=== PATIENT | female | born 1990 | race Two or more races ===

== ENCOUNTER 2017-09-07 14:07 | Emergency (ER) | payer SELFPAY ==
[2017-09-07 14:58] LABS: Bilirubin Negative (Negative); Blood, Urine Negative (Negative); Clarity CLEAR (Clear); Glucose, Urine (Dipstick) Negative (Negative); Leukocyte Negative (Negative); Nitrite Negative (Negative); Protein, Urine (Dipstick) Negative (Neg-Trace); Specific Gravity, Urine 1.016 (1.002-1.036); Urobilinogen 0.2 mg/dL (0.2-1.0); pH, Urine 7.5 (5.0-9.0)
[2017-09-07 15:22] LABS: Pregnancy Test - Urine (BHCG) Negative (Negative); Pregu Control Background? CLEAR/WHITE (CLR/WHITE); Pregu Control Bar Appear? YES (CONTROL BAR); Specific Gravity 1.016 (1.002-1.036)
[2017-09-10 12:26] LABS: Chlamydia by PCR Not Detected (NotDetected); GC by PCR Not Detected (NotDetected)
== END 2017-09-07 16:04 | disposition home or self-care (01) ==
LOC: ERS 14:07
DX: N76.0 Acute vaginitis (principal); B36.0 Pityriasis versicolor; B37.3 Candidiasis of vulva and vagina; F17.210 Nicotine dependence, cigarettes, uncomplicated
CPT/HCPCS: 81003; 81025; 87480; 87491; 87510; 87591; 87660; 99284

== ENCOUNTER 2017-11-12 18:54 | Emergency (ER) | payer SELFPAY ==
[2017-11-12 19:26] LABS: Bilirubin Negative (Negative); Blood, Urine Negative (Negative); Clarity CLOUDY (Clear); Glucose, Urine (Dipstick) Negative (Negative); Leukocyte Moderate (Negative); Nitrite Negative (Negative); Protein, Urine (Dipstick) Negative (Neg-Trace); Specific Gravity, Urine 1.016 (1.002-1.036); Urobilinogen 0.2 mg/dL (0.2-1.0)
[2017-11-12 19:27] LABS: Bacteria/HPF 1+ HPF (None Seen); Hyaline Casts/LPF 0-3 HYALINE CAST LPF (0-3 Hyaline); Pathc Cast-AUWi Flag 0.14 (0-2.49); Squamous Epithelial 0-3 HPF (0-3)
[2017-11-12 19:40] LABS: RBC/HPF 0-3 HPF (0-3)
[2017-11-13 20:00] LABS: Chlamydia by PCR Not Detected (NotDetected); GC by PCR Not Detected (NotDetected)
== END 2017-11-12 21:15 | disposition home or self-care (01) ==
LOC: ERS 18:54
DX: N76.0 Acute vaginitis (principal); N39.0 Urinary tract infection, site not specified; F17.210 Nicotine dependence, cigarettes, uncomplicated
CPT/HCPCS: 81003; 81015; 87077; 87086; 87186; 87480; 87491; 87510; 87591; 87660; 99283

== ENCOUNTER 2018-02-01 15:16 | Emergency (ER) | payer SELFPAY ==
[2018-02-01 15:39] LABS: Bilirubin Negative (Negative); Blood, Urine Negative (Negative); Clarity CLEAR (Clear); Glucose, Urine (Dipstick) Negative (Negative); Leukocyte Negative (Negative); Nitrite Negative (Negative); Protein, Urine (Dipstick) Negative (Neg-Trace); Specific Gravity, Urine 1.028 (1.002-1.036)
[2018-02-01 15:40] LABS: Pregnancy Test - Urine (BHCG) Negative (Negative); Pregu Control Background? CLEAR/WHITE (CLR/WHITE); Pregu Control Bar Appear? YES (CONTROL BAR); Specific Gravity 1.028 (1.002-1.036)
[2018-02-02 22:28] LABS: Chlamydia by PCR Not Detected (NotDetected); GC by PCR Not Detected (NotDetected)
== END 2018-02-01 17:25 | disposition home or self-care (01) ==
LOC: ERS 15:16
DX: N76.0 Acute vaginitis (principal); F17.210 Nicotine dependence, cigarettes, uncomplicated
CPT/HCPCS: 81003; 81025; 87480; 87491; 87510; 87591; 87660; 99283

== ENCOUNTER 2018-04-24 14:33 | Emergency (ER) | payer SELFPAY ==
[2018-04-24 15:01] LABS: Bilirubin Small (Negative); Blood, Urine Trace (Negative); Clarity CLOUDY (Clear); Glucose, Urine (Dipstick) Negative (Negative); Leukocyte Large (Negative); Nitrite Negative (Negative); Protein, Urine (Dipstick) Negative (Neg-Trace); Specific Gravity, Urine 1.026 (1.002-1.036)
[2018-04-24 15:02] LABS: Pregnancy Test - Urine (BHCG) Negative (Negative); Pregu Control Background? CLEAR/WHITE (CLR/WHITE); Pregu Control Bar Appear? YES (CONTROL BAR); Specific Gravity 1.026 (1.002-1.036)
[2018-04-24 15:07] LABS: Bacteria/HPF 1+ HPF (None Seen); Hyaline Casts/LPF 4-6 HYALINE CAST LPF (0-3 Hyaline); Pathc Cast-AUWi Flag 1.16 (0-2.49); Squamous Epithelial 0-3 HPF (0-3)
[2018-04-27 01:06] LABS: Chlamydia by PCR Not Detected (NotDetected); GC by PCR Not Detected (NotDetected)
== END 2018-04-24 16:45 | disposition home or self-care (01) ==
LOC: ERS 14:33
DX: N39.0 Urinary tract infection, site not specified (principal); F17.210 Nicotine dependence, cigarettes, uncomplicated
CPT/HCPCS: 81003; 81015; 81025; 87077; 87086; 87186; 87480; 87491; 87510; 87591; 87660; 99283

== ENCOUNTER 2018-06-28 08:30 | Emergency (ER) | payer SELFPAY | END 2018-06-28 09:18 | disposition home or self-care (01) | LOC: ERS 08:30 | DX: K02.9 Dental caries, unspecified (principal); F17.210 Nicotine dependence, cigarettes, uncomplicated | CPT/HCPCS: 99282 ==

== ENCOUNTER 2018-07-26 08:45 | Emergency (ER) | payer SELFPAY ==
[2018-07-26 09:11] LABS: Bilirubin Negative (Negative); Blood, Urine Negative (Negative); Clarity CLEAR (Clear); Glucose, Urine (Dipstick) Negative (Negative); Leukocyte Negative (Negative); Nitrite Negative (Negative); Protein, Urine (Dipstick) Negative (Neg-Trace); Specific Gravity, Urine 1.022 (1.002-1.036)
[2018-07-26 09:24] LABS: Pregnancy Test - Urine (BHCG) Negative (Negative); Pregu Control Background? CLEAR/WHITE (CLR/WHITE); Pregu Control Bar Appear? YES (CONTROL BAR); Specific Gravity 1.022 (1.002-1.036)
[2018-07-28 09:27] LABS: Chlamydia by PCR Not Detected (NotDetected); GC by PCR Not Detected (NotDetected)
== END 2018-07-26 10:12 | disposition home or self-care (01) ==
LOC: ERS 08:45
DX: N76.0 Acute vaginitis (principal); F17.210 Nicotine dependence, cigarettes, uncomplicated
CPT/HCPCS: 81003; 81025; 87086; 87480; 87491; 87510; 87591; 87660; 99283

== ENCOUNTER 2018-10-17 17:43 | Emergency (ER) | payer SELFPAY ==
[2018-10-17 18:45] LABS: Bilirubin Negative (Negative); Blood, Urine Negative (Negative); Clarity Clear (Clear); Glucose, Urine (Dipstick) Normal (Negative); Leukocyte Negative Leu/uL (Negative); Nitrite Negative (Negative); Protein, Urine (Dipstick) Negative (Neg-Trace); Urobilinogen Normal mg/dL (Less than 2)
[2018-10-17 19:00] LABS: Pregnancy Test - Urine (BHCG) Negative (Negative); Pregu Control Background? CLEAR/WHITE (CLR/WHITE); Pregu Control Bar Appear? YES (CONTROL BAR); Specific Gravity 1.012 (1.002-1.036)
[2018-10-17] MEDS ORDERED: cefTRIAXone\\ROCEPHIN 250 MG VIAL ONE (20:17)
[2018-10-17] MEDS ORDERED: Azithromycin 250 MG TAB ONE (20:18)
[2018-10-17] MEDS ORDERED: Lidocaine 1% PF 5 ML VIAL ONE (20:18)
== END 2018-10-17 21:20 | disposition home or self-care (01) ==
LOC: ERS 17:43
DX: N76.0 Acute vaginitis (principal); N72 Inflammatory disease of cervix uteri; B96.89 Other specified bacterial agents as the cause of diseases classified elsewhere; F17.210 Nicotine dependence, cigarettes, uncomplicated
CPT/HCPCS: 81003; 81025; 87480; 87491; 87510; 87591; 87660; 96372; 99283; J0696; J2001

== ENCOUNTER 2019-01-03 13:36 | Emergency (ER) | payer SELFPAY ==
[2019-01-03] MEDS ORDERED: Adacel (T-DAP) 0.5 ML SYRINGE ONE (16:08)
[2019-01-03] MEDS ORDERED: Ketorolac Tromethamine 30 MG/ML VIAL ONE (16:08)
--- NOTE | 2019-01-03 16:22 | RAD ---
XR Forearm Rt 2 View STANDARD: 01/03/2019 3:42 PM CLINICAL INDICATION: Pain, injury COMPARISON: None. FINDINGS: Fracture:No fracture. Arthropathy:None of significance. Incidental findings:None of significance. IMPRESSION: 1. No acute osseous abnormality.
--- NOTE | 2019-01-03 16:31 | RAD ---
RIGHT KNEE: 01/03/19 Four views. HISTORY: Injury. No fracture. No osseous abnormality. No joint effusion. IMPRESSION: Negative right knee. POS: OFF
[2019-01-03] MEDS ORDERED: Triple Antibiotic Oint 1 GM Packet ONE ×2 (17:08→17:09)
== END 2019-01-03 17:40 | disposition home or self-care (01) ==
LOC: ERS 13:36
DX: S50.311A Abrasion of right elbow, initial encounter (principal); S80.211A Abrasion, right knee, initial encounter; M79.631 Pain in right forearm; M25.561 Pain in right knee; F17.210 Nicotine dependence, cigarettes, uncomplicated; Z79.899 Other long term (current) drug therapy; W17.89XA Other fall from one level to another, initial encounter
CPT/HCPCS: 90471; 90715; 96372; J1885

== ENCOUNTER 2019-03-24 17:00 | Emergency (ER) | payer SELFPAY ==
[2019-03-24 17:20] LABS: Bilirubin Negative (Negative); Blood, Urine Negative (Negative); Clarity Clear (Clear); Glucose, Urine (Dipstick) Normal (Negative); Leukocyte Negative Leu/uL (Negative); Nitrite Negative (Negative); Pregnancy Test - Urine (BHCG) POSITIVE (Negative); Pregu Control Background? CLEAR/WHITE (CLR/WHITE); Pregu Control Bar Appear? YES (CONTROL BAR); Protein, Urine (Dipstick) Negative (Neg-Trace); Specific Gravity 1.007 (1.002-1.036); Urobilinogen Normal mg/dL (Less than 2)
[2019-03-28 00:50] LABS: Chlamydia by PCR Not Detected (NotDetected); GC by PCR Not Detected (NotDetected)
== END 2019-03-24 19:37 | disposition home or self-care (01) ==
LOC: ERS 17:00
DX: O23.591 Infection of other part of genital tract in pregnancy, first trimester (principal); N76.0 Acute vaginitis; B96.89 Other specified bacterial agents as the cause of diseases classified elsewhere; O99.331 Smoking (tobacco) complicating pregnancy, first trimester; F17.210 Nicotine dependence, cigarettes, uncomplicated; Z3A.00 Weeks of gestation of pregnancy not specified
CPT/HCPCS: 81003; 81025; 87480; 87491; 87510; 87591; 87660; 99406

== ENCOUNTER 2019-04-18 18:15 | Emergency (ER) | payer SELFPAY ==
[2019-04-18 19:47] LABS: BHCG - Serum POSITIVE (NEGATIVE); Pregs Control Background? CLEAR/WHITE (CLR/WHITE); Pregs Control Bar Appear? YES (CONTROL BAR)
--- NOTE | 2019-04-18 20:06 | ULT ---
Obstetric sonogram HISTORY: Early . Bleeding. FINDINGS: Gestational sac within the endometrial cavity contains a pole. Measurements correlate with 9 weeks 0 days gestational age. No heart motion visualized. Small amount of fluid protrudes into the cervical canal. Physiologic amount of free fluid within the pelvis. Neither ovary well visualized with transabdominal or transvaginal imaging. IMPRESSION: Intrauterine gestational sac. pole size 9 weeks 0 days. No heart motion visible. Sonographic findings of intrauterine demise. Please consider bishop se continued clinical and sonographic follow-up.
[2019-04-18 20:25] LABS: #Basophils 0.1 thou/uL (0.0-0.2); #Eosinphils 0.1 thou/uL (0.0-0.7); #Lymphocytes 2.2 thou/uL (1.20-3.40); #Monocytes 0.5 thou/uL (0.11-0.59); #Neutrophils 2.9 thou/uL (1.40-6.50); %Basophils 1.7 % (0.0-1.0); %Eosinophils 2.5 % (0.0-10.0); %Lymphocytes 37.8 % (21.0-51.0); %Monocytes 8.1 % (0.0-10.0); %Neutrophils 49.9 % (42.0-75.0); Hemoglobin 13.2 g/dL (12.0-16.0); Mean Corpuscular HGB CONC 33.1 g/dL (32.0-36.0); Mean Corpuscular Hemoglobin 28.7 pg (27.0-31.0); Mean Corpuscular Volume 86.7 fL (78.0-98.0); Mean Platelet Volume 8.2 fL (7.4-10.4); Platelet Count 257 thou/uL (130-400); RBC Distribution Width 12.3 % (11.5-14.5); Red Blood Cell (RBC) Count 4.59 mill/uL (4.20-5.40); White Blood Cell (WBC) Count 5.8 thou/uL (4.8-10.8)
[2019-04-18 20:53] LABS: ALT (SGPT) 9 U/L (8-55); AST (SGOT) 15 U/L (5-34); Albumin 4.4 g/dL (3.5-5.0); Alkaline Phosphatase 52 U/L (40-110); Anion Gap 12 mmol/L (10-20); BUN (Urea Nitrogen) 6 mg/dL (7.0-18.7); Bilirubin, Total 0.6 mg/dL (0.2-1.2); Calc. Creatinine Clearance 0 mL/min (70-130); Calcium 9.6 mg/dL (7.8-10.44); Carbon Dioxide 21 mmol/L (22-29); Chloride 106 mmol/L (98-107); Estimated GFR-MDRD Greater than 90; Globulin 2.9 g/dL (2.4-3.5); Glucose 76 mg/dL (70-105); Potassium 3.9 mmol/L (3.5-5.1); Protein, Total 7.3 g/dL (6.0-8.3); Sodium 135 mmol/L (136-145)
== END 2019-04-18 21:09 | disposition home or self-care (01) ==
LOC: ERS 18:15
DX: O03.9 Complete or unspecified spontaneous abortion without complication (principal); F17.210 Nicotine dependence, cigarettes, uncomplicated
CPT/HCPCS: 36415; 76856; 80053; 84702; 84703; 85025; 86850; 86900; 86901

== ENCOUNTER 2019-04-21 20:33 | Observation (INO) | payer MEDICAID, SELFPAY ==
[2019-04-21] MEDS ORDERED: Morphine 4 MG/ML VIAL ONE ×2 (21:14→21:53)
[2019-04-21] MEDS ORDERED: Ondansetron PF 4 MG/2 ML Vial ONE (21:14)
[2019-04-21 21:20] LABS: #Basophils 0.1 thou/uL (0.0-0.2); #Eosinphils 0.2 thou/uL (0.0-0.7); #Lymphocytes 4.4 thou/uL (1.20-3.40); #Monocytes 0.9 thou/uL (0.11-0.59); #Neutrophils 5.7 thou/uL (1.40-6.50); %Basophils 0.6 % (0.0-1.0); %Eosinophils 1.7 % (0.0-10.0); %Lymphocytes 39.4 % (21.0-51.0); %Monocytes 7.7 % (0.0-10.0); %Neutrophils 50.5 % (42.0-75.0); Hemoglobin 11.9 g/dL (12.0-16.0); Mean Corpuscular HGB CONC 33.3 g/dL (32.0-36.0); Mean Corpuscular Hemoglobin 28.7 pg (27.0-31.0); Mean Corpuscular Volume 86.1 fL (78.0-98.0); Mean Platelet Volume 7.7 fL (7.4-10.4); Platelet Count 247 thou/uL (130-400); RBC Distribution Width 12.3 % (11.5-14.5); Red Blood Cell (RBC) Count 4.17 mill/uL (4.20-5.40); White Blood Cell (WBC) Count 11.2 thou/uL (4.8-10.8)
[2019-04-21] MEDS ORDERED: Ketorolac Tromethamine 30 MG/ML VIAL ONE (21:43)
[2019-04-21 21:44] LABS: ALT (SGPT) 8 U/L (8-55); AST (SGOT) 11 U/L (5-34); Albumin 4.4 g/dL (3.5-5.0); Alkaline Phosphatase 51 U/L (40-110); Anion Gap 13 mmol/L (10-20); BUN (Urea Nitrogen) 10 mg/dL (7.0-18.7); Bilirubin, Total 0.3 mg/dL (0.2-1.2); Calc. Creatinine Clearance 0 mL/min (70-130); Calcium 9.4 mg/dL (7.8-10.44); Carbon Dioxide 25 mmol/L (22-29); Chloride 106 mmol/L (98-107); Estimated GFR-MDRD Greater than 90; Globulin 2.8 g/dL (2.4-3.5); Glucose 116 mg/dL (70-105); Potassium 3.4 mmol/L (3.5-5.1); Protein, Total 7.2 g/dL (6.0-8.3); Sodium 141 mmol/L (136-145)
[2019-04-21] MEDS ORDERED: Fentanyl 100 MCG/2 ML VIAL ONE (22:42)
--- NOTE | 2019-04-21 23:27 | ULT ---
Ultrasound pelvis: DATE: 04/21/2019 Time: 1:55 PM HISTORY: 29-year-old female with first trimester intrauterine demise documented on 04/18/2019. Increasing pelvic pain and vaginal bleeding. Evaluate for retained products of conception. COMPARISON: 04/18/2019 FINDINGS: The abnormally elongated, large volume intrauterine gestational sac remains. It is now hourglass shap ed, with lower portion reaching lower uterine segment. That is the only interval change. pole remains inside. No heart activity. No free fluid in the cul-de-sac. 1.5 cm left ovarian corpus luteal cyst. Otherwise bilateral ovaries are normal in size. IMPRESSION: Intrauterine demise, with retained, grossly intact first trimester fetus
[2019-04-22 00:08] LABS: #Basophils 0.1 thou/uL (0.0-0.2); #Lymphocytes 1.8 thou/uL (1.20-3.40); #Monocytes 0.6 thou/uL (0.11-0.59); #Neutrophils 9.9 thou/uL (1.40-6.50); %Basophils 0.9 % (0.0-1.0); %Eosinophils 0.4 % (0.0-10.0); %Lymphocytes 14.3 % (21.0-51.0); %Monocytes 4.6 % (0.0-10.0); %Neutrophils 79.8 % (42.0-75.0); Hemoglobin 10.7 g/dL (12.0-16.0); Mean Corpuscular HGB CONC 33.1 g/dL (32.0-36.0); Mean Corpuscular Hemoglobin 28.5 pg (27.0-31.0); Mean Platelet Volume 7.8 fL (7.4-10.4); Platelet Count 218 thou/uL (130-400); RBC Distribution Width 12.1 % (11.5-14.5); Red Blood Cell (RBC) Count 3.75 mill/uL (4.20-5.40); White Blood Cell (WBC) Count 12.4 thou/uL (4.8-10.8)
[2019-04-22] MEDS ORDERED: Ondansetron PF 4 MG/2 ML Vial IVP PRN (01:12)
[2019-04-22] MEDS ORDERED: Lactated Ringer's 1,000 ML IV SCH (01:15)
[2019-04-22] MEDS ORDERED: cefTRIAXone\\ROCEPHIN 1 GM in Sodium Chloride 0.9% 100 ML IVPB SCH (01:15)
[2019-04-22] MEDS ORDERED: Fentanyl 100 MCG/2 ML VIAL ONE (01:31)
--- NOTE | 2019-04-22 01:47 | HP ---
TIME OF EVALUATION: 0100 hours, time now is 0109 hours. LOCATION: ER bed 23. REASON FOR EVALUATION: Eight week spontaneous AB with bleeding. HISTORY OF PRESENT ILLNESS: In brief, this patient is a 29-year-old female, G4, P3, diagnosed with an 8 week missed AB here in the ER previously who presents now with vaginal bleeding and some clots. Ultrasound done in the ER again shows an 8 week missed AB, has retained products. Her vaginal bleeding is moderate. She has not seen a physician for this . She denies syncope, but she does have some lightheadedness. REVIEW OF SYSTEMS: Complete review of systems was completed and is otherwise negative unless specified in the HPI. PAST MEDICAL HISTORY: Negative. ALLERGIES: NONE. PAST SURGICAL HISTORY: Three previous C-sections. PHYSICAL EXAMINATION: VITAL SIGNS: Her pulse was in the 90s, blood pressure was 90/60s. She is afebrile. GENERAL: She is in no acute distress, but appears to have some uterine cramping. ABDOMEN: Soft, nontender. GENITOURINARY: Vaginal exam shows vaginal bleeding, but no active clots. LABORATORY DATA: Patient's blood type is Rh positive. Hematocrit is 32, creatinine is 0.67. ASSESSMENT: This is a 29-year-old female with a first trimester missed with active bleeding, the plan is for dilation and curettage. PLAN: 1. I have called the OR (Stevie) and he is aware. 2. We are awaiting OR availability. 3. As the patient was complaining of acute onset of bleeding, with an ultrasound showing 8 week fetus still in situ, I opted for D and C rather than Cytotec. 4. I have asked Dr. Keira Carter, who is the resident technologies division chair, to bring the ultrasound down to the OR when we are ready for ultrasound guidance. 5. Rh positive, so no RhoGAM is necessary. 6. I did perform informed consent with the patient. She is aware of risks and benefits of the D and C. Job ID: [id number]
[2019-04-22] MEDS ORDERED: HYDROcodone/Acetaminophen 5/325 mg Tablet PO PRN (02:47)
[2019-04-22] MEDS ORDERED: Promethazine HCl 25 MG/ML VIAL SLOW IVP PRN (02:56)
[2019-04-22] MEDS ORDERED: Ondansetron HCl/PF 4 MG/2 ML Vial IVP PRN (02:56)
[2019-04-22] MEDS ORDERED: PACU-Morphine 4MG/ML VIAL SLOW IVP PRN (02:56)
[2019-04-22] MEDS ORDERED: Promethazine HCl 25 MG/ML VIAL IM PRN (02:56)
[2019-04-22] MEDS ORDERED: Morphine Sulfate 2 MG/ML SYRINGE SLOW IVP PRN (02:56)
[2019-04-22] MEDS ORDERED: HYDROmorphone 2 MG/ML VIAL SLOW IVP PRN (02:56)
[2019-04-22] MEDS ORDERED: Meperidine HCl/PF 25 MG/ML VIAL SLOW IVP PRN (02:56)
--- NOTE | 2019-04-22 03:13 | PDOC.EVN ---
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 Fisrt unit given in OR DX: acute blood loss from D&C...ordered 2 units PRBCs
[2019-04-22] MEDS ORDERED: Promethazine HCl 25 MG/ML VIAL ONE (03:54)
--- NOTE | 2019-04-22 04:01 | OP ---
DATE OF PROCEDURE: 04/22/2019 TIME OF INTERVENTION: Roughly 0202 and end time is 0240. LOCATION: OR bed . PREOPERATIVE DIAGNOSIS: First trimester (about 8 weeks) spontaneous with bleeding. POSTOPERATIVE DIAGNOSES: 1. First trimester (about 8 weeks) spontaneous with bleeding. 2. Status post dilation and curettage. 3. Status post excessive blood loss. PROCEDURES PERFORMED: 1. OB suction dilation and curettage using a #8 plastic curette. 2. Transabdominal ultrasound guidance for the entire procedure (MD Emma) TAPER AND FLOATER: Keira Carter MD (sono assist) ANESTHESIA: General. ANTIBIOTICS: Rocephin 1 g IV. IV FLUIDS: Approximately 700 mL crystalloid. URINE OUTPUT: In-and-out catheterization about 100 mL. ESTIMATED BLOOD LOSS: About 1800 mL (QBL by the canister). FINDINGS: 1. There are no external vulvovaginal lesions. 2. There are no cervical lesions. 3. We performed a suction curettage using a #8 curette with no evidence of perforation noted on transabdominal ultrasound. 4. 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 DISPOSITION: To recovery room with 1 unit of packed cells hanging. DESCRIPTION OF PROCEDURE: The patient was given informed consent in the OR and she was transported to OR bed D, where she was placed under general endotracheal anesthesia. She was placed in candy-cane position and all pressure points were adequately padded. Deep hyperflexion and external rotation were avoided during this positioning process. In- and out catheterization of the bladder revealed clear urine. A Graves bivalve speculum was placed into the vagina and this was an open-sided speculum. We placed a single-tooth tenaculum at the anterior lip of the cervix for retraction. Gentle dilation using a #8 Marcello dilator was performed without complication. This was performed under direct ultrasound visualization. We performed suction D and C in the usual process and it was done under transabdominal ultrasound guidance. No evidence of perforation was noted during this procedure. It is important that during the D and C about 10 minutes in, we noted a giovanni acute bleed from the cervix, which was suspicious for a cervical perforating vessel. We continued the D and C to make sure all uterine cavity was removed and this was confirmed by ultrasound. We placed two ring clamps on the cervix to tamponade what was suspected to be a cervical bleeder. This resulted in eventual discontinuation of the bleeding as the ring clamps stayed on the cervix for about 5 to 6 minutes. BLOOD TRANSFUSION: Because the patient started developing some tachycardia with a heart rate of 104 with a blood pressure of low 90s over 60s, and based on our QBL, I made a decision to start 1 unit packed red blood cells with another unit pending. She will receive 2 units total. 1 unit started in OR. We will keep the patient for 23-hour observation to see how she does. Postop addendum: plan of care discussed with the patient's mother in waiting room. Job ID: [id number] MTDD
[2019-04-22] MEDS ORDERED: cefTRIAXone\\ROCEPHIN 1 GM VIAL ONE (04:22)
[2019-04-22] MEDS: Lactated Ringer's 1,000 ML IV SCH ×3 (05:21→19:53)
--- NOTE | 2019-04-22 07:03 | PDOC.HOSPP ---
- Subjective Encounter Date: 04/22/19 (Postop Day0) Encounter Time: 07:00 Subjective: Doing well, was resting, jake clears - Objective Vital Signs & Weight: Vital Signs (12 hours) Temp Pulse Resp BP BP Pulse Ox 04/22/19 06:38 97.9 F 71 16 87/54 L 99 04/22/19 05:32 97.9 F 67 16 87/50 L 100 04/22/19 05:05 98.2 F 67 16 87/50 L 100 04/22/19 04:41 97.6 F 65 16 97/52 L 100 04/22/19 04:32 98.6 F 64 16 97/52 L 100 04/22/19 04:26 97.9 F 72 16 96/54 L 100 04/22/19 04:21 98.6 F 72 16 95/53 L 100 04/22/19 04:02 98.6 F 67 16 96/53 L 100 Weight Weight 218 lb 4.122 oz I&O: 04/21/19 04/22/19 04/23/19 06:59 06:59 06:59 Intake Total 1350 Balance 1350 Result Diagrams: 04/21/19 23:59 04/21/19 21:03 Additional Labs: HH pending at 1600. Hospitalist ROS - Medication Medications: Active Medications Generic Name Dose Route Start Last Admin Trade Name Hilarioq PRN Reason Stop Dose Admin Lactated Ringer's 1,000 mls @ 125 mls/hr 04/22/19 03:00 04/22/19 05:21 Lactated Ringer's IV Not Given .Q8H JOHNSON - Exam General Appearance: awake alert Gastrointestinal: soft, non-tender, non-distended, no guarding, no rigidity Musculoskeletal: normal tone Psychiatric: normal affect Hosp A/P (1) Blood transfusion during current hospitalisation Code(s): [id number] - Status: Acute (2) Spontaneous Code(s): O03.9 - COMPLETE OR UNSP SPONTANEOUS WITHOUT COMPLICATION Status: Acute - Plan S/P D&C with excessive blood loss likely from cervical vessel. Now s/p 2 units PRBCs...doing well Pulse in the 60-70s this AM...and BPs appear at her baseline Follow HH at 1600 No further vag bleed at this point
[2019-04-22] MEDS ORDERED: Ondansetron PF 4 MG/2 ML Vial ONE (10:55)
[2019-04-22] MEDS ORDERED: Lidocaine 1% PF 5 ML VIAL ONE (10:55)
[2019-04-22] MEDS ORDERED: Succinylcholine Chloride 20 MG/ML 10 ml SYRINGE FS ONE (10:55)
[2019-04-22] MEDS ORDERED: PROPOFOL 200 MG/20 ML VIAL ONE (10:55)
[2019-04-22] MEDS ORDERED: PHENYLEPHRINE-NS 100 MCG/ML 10 ML SYRINGE ONE (10:55)
[2019-04-22] MEDS ORDERED: Dexamethasone 20 MG/5 ML VIAL ONE (10:55)
[2019-04-22 18:10] LABS: #Lymphocytes 1.9 thou/uL (1.20-3.40); #Monocytes 0.8 thou/uL (0.11-0.59); #Neutrophils 11.4 thou/uL (1.40-6.50); %Basophils 0.2 % (0.0-1.0); %Eosinophils 0.1 % (0.0-10.0); %Lymphocytes 13.3 % (21.0-51.0); %Monocytes 5.6 % (0.0-10.0); %Neutrophils 80.8 % (42.0-75.0); Hemoglobin 8.9 g/dL (12.0-16.0); Mean Corpuscular Hemoglobin 29.8 pg (27.0-31.0); Mean Corpuscular Volume 87.6 fL (78.0-98.0); Mean Platelet Volume 8.3 fL (7.4-10.4); Platelet Count 184 thou/uL (130-400); RBC Distribution Width 12.5 % (11.5-14.5); Red Blood Cell (RBC) Count 2.99 mill/uL (4.20-5.40); White Blood Cell (WBC) Count 14.2 thou/uL (4.8-10.8)
--- NOTE | 2019-04-22 19:41 | PDOC.BPN ---
- Brief Progress Note Patient reports she is too tired to go home and has no energy. Vitals stable. Will repeat CBC in am with likely discharge at that time.
[2019-04-23] MEDS: Lactated Ringer's 1,000 ML IV SCH (01:45)
--- NOTE | 2019-04-23 02:41 | DIS ---
DATE OF ADMISSION: 04/21/2019 DATE OF DISCHARGE: 04/23/2019 DIAGNOSES: 1. An 8 to 9-week missed . 2. Acute blood loss anemia. PROCEDURES: D and C, transfusion of 2 units of packed red blood cells. HOSPITAL COURSE: The patient presented with bleeding for what was diagnosed to be a miscarriage. She was taken to the operating room for a dilation and curettage early on 04/22. Her QBL during the procedure was 1800 mL. She received 2 units of packed red blood cells and was observed on the floor. Following her transfusion, her hemoglobin was 8.9, hematocrit was 26.2. Her vitals remained stable with a normal pulse and normotensive. She was comfortable and meeting milestones for discharge. FOLLOWUP: Follow up with [facility] in two weeks. DIET: Regular. ACTIVITIES: Pelvic rest. DISCHARGE INSTRUCTIONS: Return for heavy bleeding, fever, or other concerns. Job ID: [id number] MTDD
[2019-04-23 05:31] LABS: #Basophils 0.1 thou/uL (0.0-0.2); #Eosinphils 0.1 thou/uL (0.0-0.7); #Lymphocytes 3.6 thou/uL (1.20-3.40); #Monocytes 0.7 thou/uL (0.11-0.59); #Neutrophils 7.4 thou/uL (1.40-6.50); %Basophils 0.5 % (0.0-1.0); %Eosinophils 0.4 % (0.0-10.0); %Lymphocytes 30.7 % (21.0-51.0); %Monocytes 5.6 % (0.0-10.0); %Neutrophils 62.8 % (42.0-75.0); Hemoglobin 7.8 g/dL (12.0-16.0); Mean Corpuscular HGB CONC 33.6 g/dL (32.0-36.0); Mean Corpuscular Hemoglobin 29.2 pg (27.0-31.0); Mean Corpuscular Volume 86.9 fL (78.0-98.0); Mean Platelet Volume 8.4 fL (7.4-10.4); Platelet Count 160 thou/uL (130-400); RBC Distribution Width 12.6 % (11.5-14.5); Red Blood Cell (RBC) Count 2.68 mill/uL (4.20-5.40); White Blood Cell (WBC) Count 11.7 thou/uL (4.8-10.8)
--- NOTE | 2019-04-23 07:13 | PDOC.BPN ---
- Brief Progress Note S: Patient reports her body hurts and throat hurts from surgery. She does not want to eat or get out of bed. O: AFVSS Gen - AAO, NAD Abd - soft, NTTP, no guarding or rebound Ext - no edema Laboratory Results - last 24 hr 04/21/19 04/22/19 04/23/19 21:03 18:01 05:13 WBC 14.2 H 11.7 H RBC 2.99 L 2.68 L Hgb 8.9 L 7.8 L Hct 26.2 L 23.3 L MCV 87.6 86.9 MCH 29.8 29.2 MCHC 34.0 33.6 RDW 12.5 12.6 Plt Count 184 160 MPV 8.3 8.4 Neutrophils % 80.8 H 62.8 Lymphocytes % 13.3 L 30.7 Monocytes % 5.6 5.6 Eosinophils % 0.1 0.4 Basophils % 0.2 0.5 Neutrophils # 11.4 H 7.4 H Lymphocytes # 1.9 3.6 H Monocytes # 0.8 H 0.7 H Eosinophils # 0.0 0.1 Basophils # 0.0 0.1 Blood Type O POSITIVE Antibody Screen NEGATIVE Crossmatch See Detail A/P: Encouraged patient to eat breakfast and walk the halls this morning. Throat pain likely from intubation but should improve with PO intake. Anticipate d/c later this morning.
[2019-04-23 08:21] VITALS: BP 98/53; TEMP 98.6
== END 2019-04-23 11:45 | disposition home or self-care (01) ==
LOC: ERS 20:33 → SDC 04-22 01:39 → 3SE 04-22 01:40
PROVIDERS: ADMIT Obstetrics & Gynecology; ATTEND Obstetrics & Gynecology
PROC: 10D17ZZ Extraction of Products of Conception, Retained, Via Natural or Artificial Opening (ICD-10-PCS; principal; 2019-04-23)
DX: O03.9 Complete or unspecified spontaneous abortion without complication (principal); D62 Acute posthemorrhagic anemia; Z79.899 Other long term (current) drug therapy
CPT/HCPCS: 36415; 36430; 76856; 80053; 84702; 85025; 86850; 86900; 86901; 88305; 96361; 96374; 96375; 96376; G0378; J0696; J1100; J1885; J2001; J2270; J2405; J2550; J2704; J3010; P9016

== ENCOUNTER 2019-10-18 07:36 | Emergency (ER) | payer MEDICAID, OTHER, SELFPAY ==
[2019-10-18 08:01] LABS: Bilirubin Negative (Negative); Blood, Urine Negative (Negative); Clarity Clear (Clear); Glucose, Urine (Dipstick) Normal (Negative); Ketone, Urine Negative (Negative); Leukocyte Negative Leu/uL (Negative); Nitrite Negative (Negative); Protein, Urine (Dipstick) Negative (Neg-Trace); Specific Gravity, Urine 1.013 (1.002-1.036); Urobilinogen Normal mg/dL (Less than 2)
[2019-10-18] MEDS ORDERED: cefTRIAXone\\ROCEPHIN 250 MG VIAL ONE (08:24)
[2019-10-18] MEDS ORDERED: Lidocaine 1% PF 5 ML VIAL ONE (08:24)
[2019-10-18] MEDS ORDERED: Azithromycin 250 MG TAB ONE (08:24)
[2019-10-18 08:50] LABS: Pregnancy Test - Urine (BHCG) Negative (Negative); Pregu Control Background? CLEAR/WHITE (CLR/WHITE); Pregu Control Bar Appear? YES (CONTROL BAR); Specific Gravity 1.013 (1.002-1.036)
[2019-10-18 21:45] LABS: Chlamydia by PCR Not Detected (NotDetected); GC by PCR Not Detected (NotDetected)
== END 2019-10-18 09:08 | disposition home or self-care (01) ==
LOC: ERS 07:36
DX: N89.8 Other specified noninflammatory disorders of vagina (principal); Z20.2 Contact with and (suspected) exposure to infections with a predominantly sexual mode of transmission; F17.210 Nicotine dependence, cigarettes, uncomplicated
CPT/HCPCS: 81003; 81025; 87480; 87491; 87510; 87591; 87660; 96372; 99283; J0696

== ENCOUNTER 2020-01-13 09:09 | Emergency (ER) | payer OTHER ==
[2020-01-13] MEDS ORDERED: Boostrix 0.5 ML VIAL ONE (09:35)
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
[2020-01-13 10:13] LABS: Amphetamine Not Detected (NotDetected); Benzodiazepine Screen Not Detected (NotDetected); Cocaine Metabolite Screen Detected (NotDetected); Medtox Reader # READER 4; Methadone Not Detected (NotDetected); Methamphetamine Detected (NotDetected); Opiate Screen Not Detected (NotDetected); Phencyclidine (PCP) Not Detected (NotDetected); THC/Cannabinoid Screen Detected (NotDetected); Tricyclic Screen Not Detected (NotDetected)
[2020-01-13 10:14] LABS: Barbiturates Screen Not Detected (NotDetected); Medtox Control Line Valid? VALID (VALID); Oxycodone Screen Not Detected (NotDetected)
== END 2020-01-13 10:36 ==
LOC: ERS 09:09 → EEVIPCON 09:09 → ERS 10:36
DX: S82.51XA Displaced fracture of medial malleolus of right tibia, initial encounter for closed fracture (principal); F15.129 Other stimulant abuse with intoxication, unspecified; F10.129 Alcohol abuse with intoxication, unspecified; F12.129 Cannabis abuse with intoxication, unspecified; F14.129 Cocaine abuse with intoxication, unspecified; V89.2XXA Person injured in unspecified motor-vehicle accident, traffic, initial encounter; F17.200 Nicotine dependence, unspecified, uncomplicated
CPT/HCPCS: 27760; 80306; 80307; 90471; 90715; 96374; G0390

== ENCOUNTER 2020-01-20 16:48 | Emergency (ER) | payer OTHER ==
[2020-01-21 11:03] LABS: SARS-CoV-2 MS2 Positive; SARS-CoV-2 N Gene Negative; SARS-CoV-2 S Gene Negative; SARS-CoV-2 by NAA Not Detected (NotDetected); SARS-CoV-2 orf1ab Negative
== END 2020-01-20 17:54 | disposition home or self-care (01) ==
LOC: ERS 16:48
DX: N76.0 Acute vaginitis (principal); B96.89 Other specified bacterial agents as the cause of diseases classified elsewhere; R51.9 Headache, unspecified; R09.81 Nasal congestion; Z20.828 Contact with and (suspected) exposure to other viral communicable diseases; F17.200 Nicotine dependence, unspecified, uncomplicated
CPT/HCPCS: 87635; 99283; U0003

== ENCOUNTER 2020-04-01 13:05 | Emergency (ER) | payer OTHER ==
[2020-04-01 14:02] LABS: Bacteria/HPF None Seen HPF (None Seen); Bilirubin Negative (Negative); Blood, Urine Negative (Negative); Clarity Clear (Clear); Glucose, Urine (Dipstick) Normal (Negative); Ketone, Urine Negative (Negative); Leukocyte 75 Leu/uL (Negative); Nitrite Negative (Negative); Protein, Urine (Dipstick) Negative (Neg-Trace); RBC/HPF 0-3 HPF (0-3); Specific Gravity, Urine 1.012 (1.002-1.036); Squamous Epithelial 0-3 HPF (0-3); Urobilinogen Normal mg/dL (Less than 2); WBC/HPF 21-50 HPF (0-3)
[2020-04-01] MEDS ORDERED: metroNIDAZOLE 250 MG TAB ONE (15:39)
== END 2020-04-01 15:48 | disposition home or self-care (01) ==
LOC: ERS 13:05
DX: N39.0 Urinary tract infection, site not specified (principal); F17.290 Nicotine dependence, other tobacco product, uncomplicated
CPT/HCPCS: 81003; 81015; 87077; 87086; 87186; 99283

== ENCOUNTER 2021-09-24 14:41 | Emergency (ER) | payer OTHER, SELFPAY ==
[2021-09-24] MEDS ORDERED: Ibuprofen 200 MG TAB ONE (17:46)
== END 2021-09-24 18:07 | disposition home or self-care (01) ==
LOC: ERS 14:41
DX: M25.561 Pain in right knee (principal); W51.XXXA Accidental striking against or bumped into by another person, initial encounter; F17.200 Nicotine dependence, unspecified, uncomplicated

== ENCOUNTER 2021-10-07 15:36 | Emergency (ER) | payer OTHER | END 2021-10-07 16:05 | disposition home or self-care (01) | LOC: ERS 15:36 | DX: O99.611 Diseases of the digestive system complicating pregnancy, first trimester (principal); K01.1 Impacted teeth; K02.9 Dental caries, unspecified; O99.331 Smoking (tobacco) complicating pregnancy, first trimester; F17.210 Nicotine dependence, cigarettes, uncomplicated; Z3A.01 Less than 8 weeks gestation of pregnancy | CPT/HCPCS: 99282 ==

== ENCOUNTER 2021-10-28 18:47 | Emergency (ER) | payer OTHER, SELFPAY ==
[2021-10-28] MEDS ORDERED: Metoclopramide HCl 10 MG/2 ML VIAL ONE (20:56)
[2021-10-28] MEDS ORDERED: Metoclopramide 10 MG/10 ML UDCUP ONE (20:56)
[2021-10-28] MEDS ORDERED: diphenhydrAMINE 50 MG/ML VIAL ONE (20:56)
[2021-10-28 21:03] LABS: #Eosinphils 0.4 thou/uL (0.0-0.7); #Lymphocytes 2.6 thou/uL (1.20-3.40); #Monocytes 0.6 thou/uL (0.11-0.59); #Neutrophils 5.8 thou/uL (1.40-6.50); %Basophils 0.3 % (0.0-1.0); %Eosinophils 4.3 % (0.0-10.0); %Lymphocytes 27.2 % (21.0-51.0); %Monocytes 6.5 % (0.0-10.0); %Neutrophils 61.7 % (42.0-75.0); Hemoglobin 12.9 g/dL (12.0-16.0); Mean Corpuscular HGB CONC 32.7 g/dL (32.0-36.0); Mean Corpuscular Volume 82.7 fL (78.0-98.0); Mean Platelet Volume 8.4 fL (7.4-10.4); Platelet Count 261 thou/uL (130-400); RBC Distribution Width 14.1 % (11.5-14.5); Red Blood Cell (RBC) Count 4.79 mill/uL (4.20-5.40); White Blood Cell (WBC) Count 9.4 thou/uL (4.8-10.8)
[2021-10-28 21:16] LABS: Bacteria/HPF None Seen HPF (None Seen); Bilirubin Negative (Negative); Blood, Urine Negative (Negative); Clarity Clear (Clear); Glucose, Urine (Dipstick) Normal (Negative); Ketone, Urine 20 mg/dL (Negative); Leukocyte Negative Leu/uL (Negative); Mucous/LPF Rare LPF (<2+); Nitrite Negative (Negative); Protein, Urine (Dipstick) 30 mg/dL (Neg-Trace); RBC/HPF 0-3 HPF (0-3); Specific Gravity, Urine 1.031 (1.002-1.036); Urobilinogen 6 mg/dL (Less than 2); WBC/HPF 0-3 HPF (0-3); pH, Urine 6.5 (5.0-9.0)
[2021-10-28 21:20] LABS: ALT (SGPT) 22 U/L (8-55); AST (SGOT) 22 U/L (5-34); Albumin 4.3 g/dL (3.5-5.0); Alkaline Phosphatase 55 U/L (40-110); Anion Gap 14 mmol/L (10-20); BUN (Urea Nitrogen) 9 mg/dL (7.0-18.7); Bilirubin, Total 0.5 mg/dL (0.2-1.2); Calc. Creatinine Clearance 0 mL/min (70-130); Calcium 9.6 mg/dL (7.8-10.44); Carbon Dioxide 23 mmol/L (22-29); Chloride 104 mmol/L (98-107); Estimated GFR 123; Globulin 3.4 g/dL (2.4-3.5); Glucose 83 mg/dL (70-105); Magnesium 1.9 mg/dL (1.6-2.6); Potassium 3.8 mmol/L (3.5-5.1); Protein, Total 7.7 g/dL (6.0-8.3); Sodium 137 mmol/L (136-145)
== END 2021-10-28 23:14 | disposition home or self-care (01) ==
LOC: ERS 18:47
DX: O21.0 Mild hyperemesis gravidarum (principal); O99.331 Smoking (tobacco) complicating pregnancy, first trimester; F17.210 Nicotine dependence, cigarettes, uncomplicated; Z3A.09 9 weeks gestation of pregnancy
CPT/HCPCS: 80053; 81003; 81015; 83735; 85025; 96365; 96375; J1200; J2765

== ENCOUNTER 2022-03-17 06:01 | Emergency (ER) | payer OTHER ==
[2022-03-17] MEDS ORDERED: Proparacaine 0.5% Opth 15 ML BOT ONE (07:30)
[2022-03-17] MEDS ORDERED: Ondansetron ODT 4 MG TAB ONE (08:23)
[2022-03-17] MEDS ORDERED: Morphine 4 MG/ML VIAL ONE (08:23)
== END 2022-03-17 08:47 | disposition home or self-care (01) ==
LOC: ERS 06:01
DX: S02.832A Fracture of medial orbital wall, left side, initial encounter for closed fracture (principal); Y93.39 Activity, other involving climbing, rappelling and jumping off; Y04.8XXA Assault by other bodily force, initial encounter
CPT/HCPCS: 70486; 96372; J2270; Q0162

== ENCOUNTER 2022-04-01 08:36 | Emergency (ER) | payer OTHER ==
[2022-04-01 09:30] LABS: Bacteria/HPF None Seen HPF (None Seen); Bilirubin Negative (Negative); Blood, Urine Negative (Negative); Clarity Clear (Clear); Glucose, Urine (Dipstick) Normal (Negative); Ketone, Urine Negative (Negative); Leukocyte 75 Leu/uL (Negative); Nitrite Negative (Negative); Protein, Urine (Dipstick) Negative (Neg-Trace); RBC/HPF 0-3 HPF (0-3); Specific Gravity, Urine 1.015 (1.002-1.036); Urobilinogen Normal mg/dL (Less than 2); WBC/HPF 0-3 HPF (0-3); pH, Urine 7.5 (5.0-9.0)
== END 2022-04-01 10:08 | disposition home or self-care (01) ==
LOC: ERS 08:36
DX: O23.593 Infection of other part of genital tract in pregnancy, third trimester (principal); O26.893 Other specified pregnancy related conditions, third trimester; R82.71 Bacteriuria
CPT/HCPCS: 81003; 81015; 87086; 99284

== ENCOUNTER 2022-04-10 11:04 | Emergency (ER) | payer OTHER ==
[2022-04-10 12:59] LABS: Bacteria/HPF 1+ HPF (None Seen); Bilirubin Negative (Negative); Blood, Urine Negative (Negative); Clarity Turbid (Clear); Glucose, Urine (Dipstick) Normal (Negative); Ketone, Urine 10 mg/dL (Negative); Leukocyte 25 Leu/uL (Negative); Nitrite Negative (Negative); Protein, Urine (Dipstick) 30 mg/dL (Neg-Trace); RBC/HPF Greater than 50 HPF (0-3); Specific Gravity, Urine 1.024 (1.002-1.036); pH, Urine 6.5 (5.0-9.0)
[2022-04-10 23:12] LABS: Chlamydia by PCR Not Detected (NotDetected); GC by PCR Not Detected (NotDetected)
== END 2022-04-10 14:58 | disposition home or self-care (01) ==
LOC: ERS 11:04
DX: B37.9 Candidiasis, unspecified (principal)
CPT/HCPCS: 81003; 81015; 87480; 87491; 87510; 87591; 87660; 99284

== ENCOUNTER 2022-06-02 14:19 | Emergency (ER) | payer OTHER | END 2022-06-02 16:39 | disposition home or self-care (01) | LOC: ERS 14:19 | DX: K04.7 Periapical abscess without sinus (principal); Z87.891 Personal history of nicotine dependence | CPT/HCPCS: 99282 ==

== ENCOUNTER 2022-10-27 13:04 | Emergency (ER) | payer OTHER ==
[2022-10-27 13:38] LABS: Bacteria/HPF None Seen HPF (None Seen); Bilirubin Negative (Negative); Blood, Urine Negative (Negative); CAUTI Indications for Culture Pelvic or flank pain; Clarity Clear (Clear); Glucose, Urine (Dipstick) Normal (Negative); Ketone, Urine Negative (Negative); Leukocyte Negative Leu/uL (Negative); Nitrite Negative (Negative); Protein, Urine (Dipstick) 20 mg/dL (Neg-Trace); RBC/HPF 0-3 HPF (0-3); WBC/HPF 0-3 HPF (0-3)
[2022-10-27 13:42] LABS: Urine Culture Reflex No No
[2022-10-27 13:51] LABS: #Eosinphils 0.1 thou/uL (0.0-0.7); #Monocytes 0.5 thou/uL (0.11-0.59); #Neutrophils 2.7 thou/uL (1.40-6.50); %Basophils 0.6 % (0.0-1.0); %Eosinophils 1.7 % (0.0-10.0); %Lymphocytes 37.6 % (21.0-51.0); %Monocytes 9.1 % (0.0-10.0); %Neutrophils 50.8 % (42.0-75.0); Hemoglobin 11.8 g/dL (12.0-16.0); Mean Corpuscular HGB CONC 32.1 g/dL (32.0-36.0); Mean Corpuscular Hemoglobin 25.5 pg (27.0-31.0); Mean Corpuscular Volume 79.5 fl (78.0-98.0); Mean Platelet Volume 10.4 fL (7.4-10.4); Platelet Count 287 10x3/uL (130-400); RBC Distribution Width 14.6 % (11.5-14.5); Red Blood Cell (RBC) Count 4.63 mill/uL (4.20-5.40); White Blood Cell (WBC) Count 5.3 10x3/uL (4.8-10.8)
[2022-10-27 14:20] LABS: ALT (SGPT) 10 U/L (8-55); AST (SGOT) 13 U/L (5-34); Albumin 4.6 g/dL (3.5-5.0); Alkaline Phosphatase 60 U/L (40-110); Anion Gap 14 mmol/L (10-20); BUN (Urea Nitrogen) 14 mg/dL (7.0-18.7); Bilirubin, Total 0.5 mg/dL (0.2-1.2); Calc. Creatinine Clearance 0 mL/min (70-130); Calcium 9.7 mg/dL (7.8-10.44); Carbon Dioxide 22 mmol/L (22-29); Chloride 107 mmol/L (98-107); Estimated GFR 119; Globulin 2.9 g/dL (2.4-3.5); Glucose 103 mg/dL (70-105); Lipase 10 U/L (8-78); Potassium 3.7 mmol/L (3.5-5.1); Protein, Total 7.5 g/dL (6.0-8.3); Sodium 139 mmol/L (136-145)
[2022-10-27 14:25] LABS: BHCG - Serum Negative (NEGATIVE); Pregs Control Background? CLEAR/WHITE (CLR/WHITE); Pregs Control Bar Appear? YES (CONTROL BAR)
== END 2022-10-27 16:00 | disposition home or self-care (01) ==
LOC: ERS 13:04
DX: N76.0 Acute vaginitis (principal); B97.89 Other viral agents as the cause of diseases classified elsewhere; Z87.891 Personal history of nicotine dependence
CPT/HCPCS: 80053; 81001; 83690; 84703; 85025; 87480; 87510; 87660

== ENCOUNTER 2023-12-25 16:34 | Emergency (ER) | payer OTHER, SELFPAY ==
[2023-12-25 17:00] LABS: #Basophils Less than 0.03 10x3/uL (0.0-0.2); %Basophils 0.2 % (0.0-1.0); %Eosinophils 1.1 % (0.0-10.0); %Lymphocytes 23.2 % (21.0-51.0); %Monocytes 6.2 % (0.0-10.0); %Neutrophils 68.6 % (42.0-75.0); Hematocrit 32.1 % (36.0-47.0); Hemoglobin 10.4 g/dL (12.0-16.0); Mean Corpuscular HGB CONC 32.4 g/dL (32.0-36.0); Mean Corpuscular Hemoglobin 28.3 pg (27.0-31.0); Mean Corpuscular Volume 87.5 fL (78.0-98.0); Mean Platelet Volume 10.1 fL (7.4-10.4); Platelet Count 212 10x3/uL (130-400); RBC Distribution Width 13.4 % (11.5-14.5); Red Blood Cell (RBC) Count 3.67 mill/uL (4.20-5.40)
[2023-12-25 17:19] LABS: ALT (SGPT) 9 U/L (8-55); AST (SGOT) 11 U/L (5-34); Albumin 3.3 g/dL (3.5-5.0); Alkaline Phosphatase 68 U/L (40-110); Anion Gap 14 mmol/L (10-20); BUN (Urea Nitrogen) 10 mg/dL (7.0-18.7); Bilirubin, Total 0.3 mg/dL (0.2-1.2); Calc. Creatinine Clearance 0 mL/min (70-130); Calcium 9.1 mg/dL (7.8-10.44); Carbon Dioxide 20 mmol/L (22-29); Chloride 108 mmol/L (98-107); Estimated GFR 125; Globulin 3.9 g/dL (2.4-3.5); Glucose 74 mg/dL (70-105); Potassium 3.7 mmol/L (3.5-5.1); Protein, Total 7.2 g/dL (6.0-8.3); Sodium 138 mmol/L (136-145)
[2023-12-25 17:58] LABS: Bacteria/HPF None Seen HPF (None Seen); Bilirubin Negative (Negative); Blood, Urine Negative (Negative); CAUTI Indications for Culture Pelvic or flank pain; Clarity Clear (Clear); Glucose, Urine (Dipstick) Normal (Negative); Ketone, Urine 10 mg/dL (Negative); Leukocyte Negative Leu/uL (Negative); Nitrite Negative (Negative); Protein, Urine (Dipstick) 30 mg/dL (Neg-Trace); RBC/HPF 0-3 HPF (0-3); Urobilinogen 3 mg/dL (Less than 2); WBC/HPF 0-3 HPF (0-3)
[2023-12-25 17:59] LABS: Urine Culture Reflex No No
[2023-12-26 00:13] LABS: GC by PCR, Vaginal Swab Not Detected (NotDetected)
== END 2023-12-25 20:34 | disposition home or self-care (01) ==
LOC: ERS 16:34
DX: O23.593 Infection of other part of genital tract in pregnancy, third trimester (principal); B37.31 Acute candidiasis of vulva and vagina; O24.419 Gestational diabetes mellitus in pregnancy, unspecified control; Z3A.27 27 weeks gestation of pregnancy; Z87.891 Personal history of nicotine dependence
CPT/HCPCS: 36415; 76815; 80053; 81001; 84702; 85025; 87480; 87510; 87591; 87660

== ENCOUNTER 2024-01-27 09:19 | Day surgery (SDC) | payer OTHER ==
[~2024-01-27 09:19] MED LIST: Acetaminophen 500 MG TAB PO SCH; Ferumoxytol (ERSD) 510 MG in 0.9 % Sodium Chloride 150 ML IVPB SCH
[2024-01-27] MEDS ORDERED: Acetaminophen 500 MG TAB ONE (09:40)
[2024-01-27] MEDS: Acetaminophen 500 MG TAB PO SCH (09:41)
[2024-01-27] MEDS: Ferumoxytol (NON ERSD) 510 MG in 0.9 % Sodium Chloride 150 ML IVPB SCH (10:09)
[2024-01-27 17:04] VITALS: BP 110/65; TEMP 98
== END 2024-01-27 17:04 | disposition home or self-care (01) ==
LOC: ONC/OP 09:19
PROVIDERS: ATTEND Student in an Organized Health Care Education/Training Program
DX: O99.013 Anemia complicating pregnancy, third trimester (principal); Z3A.00 Weeks of gestation of pregnancy not specified
CPT/HCPCS: 96365; 96366; Q0138

== ENCOUNTER 2024-03-03 13:21 | Emergency (ER) | payer OTHER ==
[2024-03-03 15:38] LABS: Bacteria/HPF None Seen HPF (None Seen); Bilirubin Negative (Negative); Blood, Urine Trace (Negative); CAUTI Indications for Culture Dysuria,urgency,freq; Clarity Clear (Clear); Glucose, Urine (Dipstick) Normal (Negative); Ketone, Urine Negative (Negative); Leukocyte 75 Leu/uL (Negative); Nitrite Negative (Negative); Protein, Urine (Dipstick) 20 mg/dL (Neg-Trace); RBC/HPF 0-3 HPF (0-3); Squamous Epithelial 0-3 HPF (0-3)
[2024-03-03 15:42] LABS: Urine Culture Reflex Yes Yes
== END 2024-03-03 16:41 | disposition home or self-care (01) ==
LOC: ERS 13:21
DX: N39.0 Urinary tract infection, site not specified (principal); Z87.891 Personal history of nicotine dependence
CPT/HCPCS: 81001; 87077; 87086; 87186; 99283

== ENCOUNTER 2024-03-29 22:58 | Emergency (ER) | payer OTHER ==
[2024-03-29 23:46] LABS: #Basophils Less than 0.03 10x3/uL (0.0-0.2); %Basophils 0.2 % (0.0-1.0); %Eosinophils 1.9 % (0.0-10.0); %Lymphocytes 17.8 % (21.0-51.0); %Monocytes 5.5 % (0.0-10.0); %Neutrophils 74.2 % (42.0-75.0); Hemoglobin 10.9 g/dL (12.0-16.0); Mean Corpuscular Hemoglobin 28.4 pg (27.0-31.0); Mean Corpuscular Volume 85.9 fL (78.0-98.0); Mean Platelet Volume 9.5 fL (7.4-10.4); Platelet Count 331 10x3/uL (130-400); RBC Distribution Width 14.3 % (11.5-14.5); Red Blood Cell (RBC) Count 3.84 mill/uL (4.20-5.40)
[2024-03-30 00:15] LABS: ALT (SGPT) 46 U/L (8-55); AST (SGOT) 91 U/L (5-34); Albumin 3.5 g/dL (3.5-5.0); Alkaline Phosphatase 85 U/L (40-110); Anion Gap 14 mmol/L (10-20); BUN (Urea Nitrogen) 18 mg/dL (7.0-18.7); Bilirubin, Total 0.3 mg/dL (0.2-1.2); Calc. Creatinine Clearance 0 mL/min (70-130); Calcium 9.2 mg/dL (7.8-10.44); Carbon Dioxide 25 mmol/L (22-29); Chloride 104 mmol/L (98-107); Estimated GFR 119; Globulin 3.1 g/dL (2.4-3.5); Glucose 119 mg/dL (70-105); Potassium 3.5 mmol/L (3.5-5.1); Protein, Total 6.6 g/dL (6.0-8.3); Sodium 139 mmol/L (136-145)
[2024-03-30] MEDS ORDERED: Morphine 4 MG/ML VIAL ONE (00:24)
[2024-03-30] MEDS ORDERED: Ondansetron PF 4 MG/2 ML Vial ONE (00:24)
[2024-03-30 00:54] LABS: Bilirubin Negative (Negative); Blood, Urine Negative (Negative); CAUTI Indications for Culture Dysuria,urgency,freq; Clarity Clear (Clear); Glucose, Urine (Dipstick) Normal (Negative); Ketone, Urine Negative (Negative); Leukocyte 250 Leu/uL (Negative); Nitrite Negative (Negative); Protein, Urine (Dipstick) Negative (Neg-Trace); RBC/HPF 0-3 HPF (0-3); Specific Gravity, Urine 1.018 (1.002-1.036); Squamous Epithelial 0-3 HPF (0-3); Urobilinogen 3 mg/dL (Less than 2); pH, Urine 6.5 (5.0-9.0)
[2024-03-30 00:55] LABS: Bacteria/HPF Rare-Few HPF (None Seen); Urine Culture Reflex Yes Yes
[2024-03-30] MEDS ORDERED: cefTRIAXone (ROCEPHIN) 500 MG VIAL ONE (01:00)
== END 2024-03-30 03:52 | disposition home or self-care (01) ==
LOC: ERS 22:58
DX: N39.0 Urinary tract infection, site not specified (principal); M54.6 Pain in thoracic spine; Z87.891 Personal history of nicotine dependence
CPT/HCPCS: 36415; 71045; 71275; 80053; 81001; 85025; 85379; 87086; 96374; 96375; J0696; J2272; J2405

== ENCOUNTER 2024-07-26 13:50 | Emergency (ER) | payer OTHER ==
[2024-07-26] MEDS ORDERED: Ketorolac Tromethamine 30 MG (1 mL) VIAL ONE (14:18)
== END 2024-07-26 14:43 | disposition home or self-care (01) ==
LOC: ERS 13:50
DX: K04.7 Periapical abscess without sinus (principal); F17.210 Nicotine dependence, cigarettes, uncomplicated
CPT/HCPCS: 96372; 99282; J1885

== ENCOUNTER 2025-01-01 12:08 | Emergency (ER) | payer OTHER ==
[2025-01-01] MEDS ORDERED: Ketorolac Tromethamine 30 MG (1 mL) VIAL ONE (14:02)
[2025-01-01 14:39] LABS: Bacteria/HPF None Seen HPF (None Seen); CAUTI Indications for Culture Dysuria,urgency,freq; Glucose, Urine (Dipstick) Normal (Negative); Leukocyte Negative Leu/uL (Negative); Protein, Urine (Dipstick) 30 mg/dL (Neg-Trace); RBC/HPF 0-3 HPF (0-3); Specific Gravity, Urine 1.046 (1.002-1.036); WBC/HPF 0-3 HPF (0-3)
[2025-01-01 14:41] LABS: Urine Culture Reflex No No
[2025-01-01 22:37] LABS: Chlamydia by PCR, Vaginal Swab Not Detected (NotDetected); GC by PCR, Vaginal Swab Not Detected (NotDetected)
== END 2025-01-01 17:37 | disposition home or self-care (01) ==
LOC: ERS 12:08
DX: K04.7 Periapical abscess without sinus (principal); N76.0 Acute vaginitis; B96.89 Other specified bacterial agents as the cause of diseases classified elsewhere; F17.210 Nicotine dependence, cigarettes, uncomplicated
CPT/HCPCS: 81001; 87480; 87491; 87510; 87591; 87660; 96372; 99283; J1885